=== PATIENT | female | born 1935 | race Caucasian/White ===

== ENCOUNTER 2019-08-24 06:46 | Inpatient (IN) ==
[2019-08-24] MEDS ORDERED: IOPAMIDOL 100 ML BOTTLE IV ONE (06:47)
--- NOTE | 2019-08-24 07:10 | Emergency Department Note ---
Weakness HPI - General Chief complaint: Stroke Symptoms Stated complaint: suspects cva 5 days Time Seen by Provider: 08/24/19 06:55 Source: patient, EMS Mode of arrival: EMS Limitations: no limitations - History of Present Illness HPI Narrative: 84-year-old female with a 5-day history of generalized weakness. She was initially seen on day 1 in our ER-I reviewed that note-but at that time the doctor did not see any focal deficit-she was diagnosed with dehydration and hyponatremia. Today however she comes in with slurred speech and right-sided weakness worse than left. The right hand weakness has been going on for 2 days now -yesterday she had some trouble eating with. This morning she had some trouble getting out of bed and putting weight on that arm. she is concerned she has had a stroke. Her daughter noted a facial droop as well. Her daughter also notes the slurred speech. Yesterday she was able to get out of bed on her own go to the bathroom but this morning she was not even able to get out of bed secondary to her right arm and leg weakness - Related Data Home Medications Medication Instructions Recorded Confirmed Aspirin [Lee Chewable Aspirin] 81 mg PO DAILY 08/21/16 08/24/19 Ascorbic Acid [Vitamin C] 500 mg PO DAILY 08/20/19 08/24/19 Benzonatate [Tessalon] 100 mg PO DAILY PRN 08/20/19 08/24/19 Canagliflozin [Invokana] 100 mg PO DAILY 08/20/19 08/24/19 Cholecalciferol (Vitamin D3) 25 gm MC DAILY 08/20/19 08/24/19 [Vitamin D3] Cyanocobalamin/Folic Acid [Vitamin 1,000 tab PO DAILY 08/20/19 08/24/19 R44-Aetvr Acid Tablet] Garlic [Garlic Oil] 2,000 tab PO DAILY 08/20/19 08/24/19 Vidhi Root 550 mg PO BID 08/20/19 08/24/19 Gluc Pierre/Chondro Pierre A/Vit C/Mn 1 tab PO DAILY 08/20/19 08/24/19 [Glucosamine 1,500 Complex Cp] L.acidoph,Paracasei, B.lactis 1 tab PO DAILY 08/20/19 08/24/19 [Probiotic] Linagliptin [Tradjenta] 1 tab PO DAILY 08/20/19 08/24/19 Multivit-Minerals/Folic Acid [One 1 tab PO DAILY 08/20/19 08/24/19 Daily Womens 50 Plus Tab] [place]-3S/Dha/Epa/Fish Oil [Fish 1 tab PO DAILY 08/20/19 08/24/19 Oil 1,200 mg Softgel] Pioglitazone HCl 30 mg PO DAILY 08/20/19 08/24/19 Psyllium Husk [Daily Fiber] 2 tab PO DAILY 08/20/19 08/24/19 Ubidecarenone [Co Q-10] 200 mg PO DAILY 08/20/19 08/24/19 rOPINIRole HCL [Ropinirole HCl] 2 mg PO DAILY 08/20/19 08/24/19 Hydrochlorothiazide [Oretic] 25 mg PO DAILY 08/24/19 08/24/19 Losartan Potassium 100 mg PO DAILY 08/24/19 08/24/19 Allergies Allergy/AdvReac Type Severity Reaction Status Date / Time No Known Drug Allergies Allergy Verified 08/20/19 15:57 Review of Systems All systems ED: reviewed and negative except as stated. Past Medical History - Past Medical History Attestation: Yes: The following information was validated with the patient. [facility] Narrative: Medical History (Last Updated 08/20/19 @ 22:57 by Alon Shah DO) Restless leg syndrome (Chronic) Diabetic peripheral neuropathy (Chronic) Hypertension, essential (Chronic) Hyperlipidemia (Chronic) Diabetes mellitus, type 2 (Chronic) Past Surgical History (Last Updated 08/20/19 @ 22:58 by Alon Shah DO) History of back surgery (Acute) History of bilateral cataract extraction (Acute) History of carpal tunnel release of both wrists (Acute) History of total bilateral knee replacement (TKR) (Acute) Medical history: Reports: DM, hyperlipidemia, hypertension, other (B12 deficient) - Social History smoking status: Former smoker Alcohol use: Reports: Unknown Drug use: Reports: none Physical Exam No acute distress. Normocephalic atraumatic. Conjunctive are clear sclera white nonicteric. No nasal discharge or congestion. Oropharynx is pink and moist. Posterior pharynx is clear. Neck is supple without lymphadenopathy thyromegaly or carotid bruit. Heart is regular rate and rhythm no murmur appreciated. Lungs are clear to auscultation bilaterally without wheezes rales rhonchi or respiratory distress. Abdomen soft nontender nondistended. No peritoneal signs or guarding. No pedal edema. Alert oriented. No dysarthria a taxia or tremor. 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 Right hip is also weaker than the left she can hold both legs up against gravity. She does have some ataxia on the right side with [id number] being off and significantly different than the left. There is perhaps a slight right facial droop but this is equivocal. Cranial nerve testing was essentially normal but she did have some difficulty following directions on the extraocular movements. I do not see any aphasia Limitations: no limitations Course Vital Signs Temperature 97.8 F 08/24/19 06:48 Pulse Rate 68 08/24/19 06:48 Respiratory Rate 18 08/24/19 06:48 Pulse Oximetry (%) 97 08/24/19 06:48 Temperature 97.8 F 08/24/19 06:48 Pulse Rate 67 08/24/19 08:16 Respiratory Rate 18 08/24/19 08:32 Blood Pressure 125/96 08/24/19 08:32 Pulse Oximetry (%) 98 08/24/19 08:16 Weakness - Lab Data Result diagrams: 08/24/19 07:06 08/24/19 07:06 Lab Results 08/24/19 08/24/19 08/24/19 Range/Units 07:06 07:06 07:06 WBC 9.1 (4.5-11.0) K/mcL RBC 4.75 (4.00-5.20) M/mcL Hgb 12.8 (12.0-15.0) g/dL Hct 39.8 (36.0-48.0) % POC Hct 39.0 (36.0-48.0) % MCV 83.8 (80.0-100.0) fL MCH 27.0 (26.0-34.0) pg MCHC 32.3 (31.0-36.0) g/dL RDW 15.3 H (11.5-14.5) % Plt Count 235 (140-440) K/mcL MPV 8.7 (7.4-10.4) fL Gran % 63.7 (38.0-78.0) % Lymph % (Auto) 21.6 (15.5-49.0) % [place] % (Auto) 8.7 (1.0-12.0) % Eos % (Auto) 5.5 (0.0-7.0) % Baso % (Auto) 0.5 (0.0-2.0) % Gran # 5.8 (1.8-8.0) K/mcL Lymph # (Auto) 2.0 (1.5-4.8) K/mcL [place] # (Auto) 0.8 (0.1-0.9) K/mcL Eos # (Auto) 0.5 (0.0-0.7) K/mcL Baso # (Auto) 0 (0.0-0.3) K/mcL POC PT 11.9 (11.9-14.5) sec POC INR 1.0 (0.9-1.2) APTT 30 (20-37) sec POC Sodium 137 (133-145) mmol/L Sodium 137 (133-145) mmol/L POC Potassium 3.8 (3.3-5.1) mmol/L Potassium 4.0 (3.3-5.1) mmol/L POC Chloride 106 (96-108) mmol/L Chloride 102 (96-108) mmol/L Carbon Dioxide 21 L (22-30) mmol/L POC Total CO2 22 (22-30) mmol/L Anion Gap 14.0 (8-16) POC BUN 27 H (8-23) mg/dl BUN 26 H (8-23) mg/dl Creatinine 0.9 (0.6-1.1) mg/dl POC Creatinine 0.9 (0.6-1.1) mg/dl GFR Calculation 58 Glucose 132 H (70-105) mg/dL POC Glucose 131 H (70-105) mg/dL Calcium 9.8 (8.6-10.4) mg/dl POC WB Ioniz Calcium 1.18 (1.16-1.32) mmol/L Total Bilirubin 0.2 (0.0-1.0) mg/dL AST 13 (0-37) U/l ALT 12 (0-40) U/l Alkaline Phosphatase 59 (39-117) U/L Troponin T (0-0.03) ng/ml Total Protein 6.7 (5.9-8.4) gm/dL Albumin 3.6 (3.2-5.2) gm/dL Globulin 3.1 (2.2-3.7) gm/dL Albumin/Globulin Ratio 1.2 (1.0-2.3) Urine Color Urine Appearance Urine pH (5.0-9.0) Ur Specific [place] (1.000-1.035) Urine Protein (NEG) mg/dL Urine Glucose (UA) (NEG) mg/dL Urine Ketones (NEG) mg/dL Urine Occult Blood (<0.03) mg/dL Urine Nitrate (NEG) Urine Bilirubin (NEG) mg/dL Urine Urobilinogen (NEG) mg/dL Ur Leukocyte Esterase (NEG) /uL Urine RBC (0-1) /hpf Urine WBC (0-4) /hpf Ur Squamous Epith Cells (0-4) /hpf Ur Transition Epith Cell (0-2) /hpf Urine Bacteria (0) /hpf Ur Culture Indicated? 08/24/19 08/24/19 Range/Units 07:06 07:30 WBC (4.5-11.0) K/mcL RBC (4.00-5.20) M/mcL Hgb (12.0-15.0) g/dL Hct (36.0-48.0) % POC Hct (36.0-48.0) % MCV (80.0-100.0) fL MCH (26.0-34.0) pg MCHC (31.0-36.0) g/dL RDW (11.5-14.5) % Plt Count (140-440) K/mcL MPV (7.4-10.4) fL Gran % (38.0-78.0) % Lymph % (Auto) (15.5-49.0) % [place] % (Auto) (1.0-12.0) % Eos % (Auto) (0.0-7.0) % Baso % (Auto) (0.0-2.0) % Gran # (1.8-8.0) K/mcL Lymph # (Auto) (1.5-4.8) K/mcL [place] # (Auto) (0.1-0.9) K/mcL Eos # (Auto) (0.0-0.7) K/mcL Baso # (Auto) (0.0-0.3) K/mcL POC PT (11.9-14.5) sec POC INR (0.9-1.2) APTT (20-37) sec POC Sodium (133-145) mmol/L Sodium (133-145) mmol/L POC Potassium (3.3-5.1) mmol/L Potassium (3.3-5.1) mmol/L POC Chloride (96-108) mmol/L Chloride (96-108) mmol/L Carbon Dioxide (22-30) mmol/L POC Total CO2 (22-30) mmol/L Anion Gap (8-16) POC BUN (8-23) mg/dl BUN (8-23) mg/dl Creatinine (0.6-1.1) mg/dl POC Creatinine (0.6-1.1) mg/dl GFR Calculation Glucose (70-105) mg/dL POC Glucose (70-105) mg/dL Calcium (8.6-10.4) mg/dl POC WB Ioniz Calcium (1.16-1.32) mmol/L Total Bilirubin (0.0-1.0) mg/dL AST (0-37) U/l ALT (0-40) U/l Alkaline Phosphatase (39-117) U/L Troponin T < 0.01 (0-0.03) ng/ml Total Protein (5.9-8.4) gm/dL Albumin (3.2-5.2) gm/dL Globulin (2.2-3.7) gm/dL Albumin/Globulin Ratio (1.0-2.3) Urine Color Straw Urine Appearance Clear Urine pH 6.0 (5.0-9.0) Ur Specific [place] 1.007 (1.000-1.035) Urine Protein Neg (NEG) mg/dL Urine Glucose (UA) >=500 A (NEG) mg/dL Urine Ketones Neg (NEG) mg/dL Urine Occult Blood Neg (<0.03) mg/dL Urine Nitrate Neg (NEG) Urine Bilirubin Neg (NEG) mg/dL Urine Urobilinogen Neg (NEG) mg/dL Ur Leukocyte Esterase 25 A (NEG) /uL Urine RBC < 1 (0-1) /hpf Urine WBC 2 (0-4) /hpf Ur Squamous Epith Cells 2 (0-4) /hpf Ur Transition Epith Cell < 1 (0-2) /hpf Urine Bacteria 0 (0) /hpf Ur Culture Indicated? No - Radiology Data Radiology results reviewed: Yes I reviewed the patient's radiology results. CT scan of the brain shows no acute stroke Disposition Pt seen by PRESS OPERATOR MEAT/PA only: No Clinical Impression: CVA (cerebral vascular accident) Qualifiers: CVA mechanism: unspecified Qualified Code(s): I63.9 - Cerebral infarction, unspecified Summary: Concern for acute neural deficit with an NIH of 3. CT scan was negative. Laboratory is pending. EKG did not show any concerning features nor was she in A. fib Tele-stroke was contacted. CTA was ordered of the head and neck. While was waiting for the CTA, I discussed the case with tele-stroke Dr. Webb. He agreed the patient was not a candidate for TPA because symptom onset was unknown and could be as great as 48 hours ago. He recommended continuing the aspirin and evaluating the CTA for large vessel occlusion. If the CTA shows large vessel occlusion she would be eligible for an intervention but otherwise recommended admission with MRI and further work-up here Shift change came and patient is handed off to Dr. Shah for further evaluation management and disposition Disposition: Still a Patient Condition: Serious Referrals: Chelsea Wagner, MIRZA [Primary Care Provider] -
[2019-08-24 07:18] LABS: POC Pro Time 11.9 sec (11.9-14.5)
[2019-08-24 07:21] LABS: POC Blood Urea Nitrogen 27 mg/dl (8-23); POC CO2 22 mmol/L (22-30); POC Calcium, Ionized 1.18 mmol/L (1.16-1.32); POC Chloride 106 mmol/L (96-108); POC Creatinine 0.9 mg/dl (0.6-1.1); POC Glucose, Random 131 mg/dL (70-105); POC Potassium 3.8 mmol/L (3.3-5.1); POC Sodium 137 mmol/L (133-145)
--- NOTE | 2019-08-24 07:30 | Cat Scan Report ---
CLINICAL INFORMATION: Dysarthria and weakness. Acute stroke COMPARISON: None. TECHNIQUE: 2.5 mm helical slices were obtained in the skull base to vertex. Following reconstruction, axial reformatted images were reviewed at bone and parenchymal windows. The exam was performed using radiation dose optimization techniques including, but not limited to, automated exposure control, adjustment of the mA and/or kV according to patient size and use of iterative reconstruction technique. FINDINGS: The ventricles, sulci, fissures, and cisterns are symmetrically enlarged compatible with mild age-related atrophy. No extra-axial fluid collections are identified. Mild patchy chronic ischemic changes in the deep cerebral white matter are expected for age. The cerebrum, brainstem and cerebellum are, otherwise, unremarkable. There is no evidence of hemorrhage, mass effect, or edema. Bone windows show no osseous abnormality. IMPRESSION: Mild atrophy and patchy chronic ischemic changes in the deep cerebral white matter expected for age. No acute findings Interpreted and Authenticated by: Eladio Arredondo 08/24/19
[2019-08-24 08:03] LABS: Basophils # (Auto) 0 K/mcL (0.0-0.3); Basophils % (Auto) 0.5 % (0.0-2.0); Eosinophils # (Auto) 0.5 K/mcL (0.0-0.7); Eosinophils % (Auto) 5.5 % (0.0-7.0); Granulocytes % (Auto) 63.7 % (38.0-78.0); Hematocrit 39.8 % (36.0-48.0); Hemoglobin 12.8 g/dL (12.0-15.0); Lymphocytes % (Auto) 21.6 % (15.5-49.0); Mean Cell Volume 83.8 fL (80.0-100.0); Mean Corpuscular HGB Conc 32.3 g/dL (31.0-36.0); Mean Platelet Volume 8.7 fL (7.4-10.4); Monocytes # (Auto) 0.8 K/mcL (0.1-0.9); Monocytes % (Auto) 8.7 % (1.0-12.0); Platelet Count 235 K/mcL (140-440); RBC 4.75 M/mcL (4.00-5.20); Red Cell Distribution Width 15.3 % (11.5-14.5); WBC 9.1 K/mcL (4.5-11.0)
[2019-08-24 08:22] LABS: ALT/SGPT 12 U/l (0-40); AST/SGOT 13 U/l (0-37); Albumin 3.6 gm/dL (3.2-5.2); Albumin/Globulin Ratio 1.2 (1.0-2.3); Alkaline Phosphatase 59 U/L (39-117); Bilirubin,Total 0.2 mg/dL (0.0-1.0); Blood Urea Nitrogen 26 mg/dl (8-23); Calcium 9.8 mg/dl (8.6-10.4); Carbon Dioxide 21 mmol/L (22-30); Chloride 102 mmol/L (96-108); Globulin 3.1 gm/dL (2.2-3.7); Glomerular Filtration Rate 58; Glucose 132 mg/dL (70-105)
[2019-08-24 08:32] LABS: Appearance,Urine CLEAR; Bacteria,Urine 0 /hpf (0); Bilirubin,Urine NEG (NEG); Color,Urine STRAW; Culture Indicated,Urine NO; Glucose,Urine (UA) >=500 mg/dL (NEG); Ketones,Urine NEG (NEG); Leukocyte Esterase,Urine 25 /uL (NEG); Nitrate,Urine NEG (NEG); Protein,Urine NEG (NEG); Specific Gravity,Urine 1.007 (1.000-1.035); Urine Blood NEG mg/dL (<0.03); Urine RBC < 1 /hpf (0-1); Urine Squamous Epithelial Cell 2 /hpf (0-4); Urine Transitional Epi Cells < 1 /hpf (0-2); Urine WBC 2 /hpf (0-4); Urobilinogen,Urine NEG (NEG)
--- NOTE | 2019-08-24 09:22 | Cat Scan Report ---
CLINICAL INFORMATION: CVA COMPARISON: None. TECHNIQUE: 80 cc of Isovue-370 were injected intravenously , and using SmartPrep to maximize cerebral arterial opacification, 0.625 mm helical slices were obtained from the skull base through the cerebral vertex. Following reconstruction , sagittal, coronal and axial reformatted images were processed and reviewed at multiple windows and levels. 3D volume rendered and MIP images were acquired at a independent workstation. The exam was performed using radiation dose optimization techniques including, but not limited to, automated exposure control, adjustment of the mA and/or kV according to patient size and use of iterative reconstruction technique. FINDINGS: Both intracranial internal carotid, both anterior cerebral and left middle cerebral arteries are well opacified and normal in contour and caliber. In the right middle cerebral artery, the M2 insular segment branch is absent which is suspect is due to occlusion from thrombus or embolus. The remaining right middle cerebral artery and branches are normal. The intracranial vertebral and basilar arteries are normal. There there are 4-5 stenoses ranging up to 80% within the P1 and P2 branches of the right posterior cerebral artery. 80% stenosis within the left P2 segment posterior cerebral artery initiated. The superficial /deep cerebral veins and the venous sinuses are widely patent. IMPRESSION: 1. 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 Suggest MRI 2. 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 There is also a 80% stenosis in the P2 segment of left posterior cerebral artery. Interpreted and Authenticated by: Eladio Arredondo 08/24/19
--- NOTE | 2019-08-24 09:34 | Cat Scan Report ---
CLINICAL INFORMATION: Stroke symptoms COMPARISON: None. TECHNIQUE: 80 cc of Isovue-370 were injected intravenously, and using SmartPrep to maximize arterial opacification, 0.625 mm helical slices were obtained from the thoracic aortic arch through the [place] of [place]. Following reconstruction, 2.5mm sagittal, coronal and axial reformatted images were processed and reviewed at standard and bone algorithm/window. 3-D volume rendered, CPR and MIP images were processed using a Q.ME work station.The exam was performed using radiation dose optimization techniques including, but not limited to, automated exposure control, adjustment of the mA and/or kV according to patient size and use of iterative reconstruction technique. FINDINGS: The thoracic aortic arch is normal in diameter with diffuse intimal thickening. Aortic branching is conventional. The brachiocephalic, both common, internal and external carotid, both vertebral and subclavian arteries are widely patent. There is mild calcific plaque in both proximal internal carotid arteries. At C4-5, there is 3 mm of C4 anterior subluxation and degenerative facet disease which results in severe left lateral recess/ IV foraminal narrowing with impingement of the exiting left C5 nerve root. At C5-6, moderate broad disc spur complex and facet arthropathy results in mild central canal, moderate left and mild right lateral recess/ IV foraminal narrowing with impingement of the exiting left C6 nerve root. At C6-7, large broad disc spur complex results in moderate central canal, severe right and moderate severe left lateral recess/ IV foraminal narrowing impinging the exiting C7 nerve roots. Large effusion is noted in the right glenohumeral joint with 3-4 loose bodies ranging up to 12 mm the subscapularis bursa. There is also fluid in both sternoclavicular and left glenohumeral joints. IMPRESSION: 1. Thoracic aortic arch, brachiocephalic, both subclavian, vertebral and carotid arteries are widely patent. There is, however, mild calcific plaque in the proximal internal carotid arteries. 2. Large effusion in the right glenohumeral joint distending the subscapularis bursa which contains 2-3 loose bodies ranging up to 12 mm. Findings suggestive of synovial osteochondromatosis - please correlate with chronic shoulder pain. Small effusion left glenohumeral joint is also appreciated. 3. Moderate effusion of both sternoclavicular joints - please correlate with pain. Consider correlation with arthritic serologies 4. Degenerative changes in the mid cervical spine resulting in central canal, lateral recess and IV foraminal narrowing most severe at C6-7. Please correlate with chronic radiculopathy in the left C5 and C6 and bilateral C7 nerve root distributions., Interpreted and Authenticated by: Eladio Arredondo 08/24/19
--- NOTE | 2019-08-24 10:21 | Emergency Department Note ---
Neuro HPI - General Chief Complaint: Stroke Symptoms Stated Complaint: suspects cva 5 days Time Seen by Provider: 08/24/19 06:55 Source: patient, EMS Mode of arrival: EMS Limitations: no limitations - History of Present Illness HPI Narrative: See dictated history and physical by Dr. Jackson. I am following patient up after change in shift. CTA demonstrated a question of absent him to segments of the right MCA suggesting occlusion with chronicity unknown and suggestion for MRI. 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 I spoke with Dr. Maya, stroke neurologist, who confirms that because this is more than 24 hours since presentation and does not correlate to her symptoms/findings there is no aggressive or acute intervention needed. MRI is not indicated on an urgent/emergent basis. I discussed this with family who is willing to have patient stay for further evaluation/monitoring. Willing if necessary for transfer to [facility]. 10:01 AM - call out to hospitalist here. 10:30 AM - spoke with Dr. Dugan. With patient having these interesting stenoses he is requesting that I review/consult with interventional radiologist Dr. Johnson. 10:46 AM - spoke with Dr. Johnson who points out that with intracranial stenoses they are treated initially quite conservatively as the risks of intracranial stenting is problematic. He recommends dual antiplatelet therapy with full dose aspirin at 325 and Plavix 75 daily (could be loaded with 300). If she has repeat stroke problems then stenting would be consideration. 11:05 AM - spoke with Dr. Dugan who will see patient for admission. MRI and echocardiogram to be considered for further work-up. On Anticoagulants: No - Related Data Home Medications: Home Medications Medication Instructions Recorded Confirmed Aspirin [Lee Chewable Aspirin] 81 mg PO DAILY 08/21/16 08/24/19 Ascorbic Acid [Vitamin C] 500 mg PO DAILY 08/20/19 08/24/19 Benzonatate [Tessalon] 100 mg PO DAILY PRN 08/20/19 08/24/19 Canagliflozin [Invokana] 100 mg PO DAILY 08/20/19 08/24/19 Cholecalciferol (Vitamin D3) 25 gm MC DAILY 08/20/19 08/24/19 [Vitamin D3] Cyanocobalamin/Folic Acid [Vitamin 1,000 tab PO DAILY 08/20/19 08/24/19 [id number] Acid Tablet] Garlic [Garlic Oil] 2,000 tab PO DAILY 08/20/19 08/24/19 Vidhi Root 550 mg PO BID 08/20/19 08/24/19 Gluc Pierre/Chondro Pierre A/Vit C/Mn 1 tab PO DAILY 08/20/19 08/24/19 [Glucosamine 1,500 Complex Cp] L.acidoph,Paracasei, B.lactis 1 tab PO DAILY 08/20/19 08/24/19 [Probiotic] Linagliptin [Tradjenta] 1 tab PO DAILY 08/20/19 08/24/19 Multivit-Minerals/Folic Acid [One 1 tab PO DAILY 08/20/19 08/24/19 Daily Womens 50 Plus Tab] [place]-3S/Dha/Epa/Fish Oil [Fish 1 tab PO DAILY 08/20/19 08/24/19 Oil 1,200 mg Softgel] Pioglitazone HCl 30 mg PO DAILY 08/20/19 08/24/19 Psyllium Husk [Daily Fiber] 2 tab PO DAILY 08/20/19 08/24/19 Ubidecarenone [Co Q-10] 200 mg PO DAILY 08/20/19 08/24/19 rOPINIRole HCL [Ropinirole HCl] 2 mg PO DAILY 08/20/19 08/24/19 Hydrochlorothiazide [Oretic] 25 mg PO DAILY 08/24/19 08/24/19 Losartan Potassium 100 mg PO DAILY 08/24/19 08/24/19 Allergies/Adverse Reactions: Allergies Allergy/AdvReac Type Severity Reaction Status Date / Time No Known Drug Allergies Allergy Verified 08/20/19 15:57 Past Medical History - Past Medical History Medical history: Reports: DM, hyperlipidemia, hypertension, other (B12 deficient) Surgical history ED: Reports: non-contributory - Social History smoking status: Former smoker Alcohol use: Reports: Unknown Drug use: Reports: none Physical Exam Is pleasant and interactive. Her speech is slightly slurred/slowed. A decrease in movement on the right side of her mouth is equivocal. She continues to report the right upper extremity and right lower extremity weakness. Family volunteers that there is some weakness on both sides but patient clarifies that there is greater on the right compared to the left. Extraocular muscles intact. She moves all extremities. She is interactive and appropriate. Limitations: no limitations Course Vital Signs Temperature 97.8 F 08/24/19 06:48 Pulse Rate 68 08/24/19 06:48 Respiratory Rate 18 08/24/19 06:48 Pulse Oximetry (%) 97 08/24/19 06:48 Temperature 97.8 F 08/24/19 06:48 Pulse Rate 78 08/24/19 10:46 Respiratory Rate 22 08/24/19 10:46 Blood Pressure 122/58 08/24/19 10:46 Pulse Oximetry (%) 100 08/24/19 10:46 Neuro Symptoms/Deficit - Lab Data Result diagrams: 08/24/19 07:06 08/24/19 07:06 Lab Results 08/24/19 08/24/19 08/24/19 Range/Units 07:06 07:06 07:06 WBC 9.1 (4.5-11.0) K/mcL RBC 4.75 (4.00-5.20) M/mcL Hgb 12.8 (12.0-15.0) g/dL Hct 39.8 (36.0-48.0) % POC Hct 39.0 (36.0-48.0) % MCV 83.8 (80.0-100.0) fL MCH 27.0 (26.0-34.0) pg MCHC 32.3 (31.0-36.0) g/dL RDW 15.3 H (11.5-14.5) % Plt Count 235 (140-440) K/mcL MPV 8.7 (7.4-10.4) fL Gran % 63.7 (38.0-78.0) % Lymph % (Auto) 21.6 (15.5-49.0) % Pepin % (Auto) 8.7 (1.0-12.0) % Eos % (Auto) 5.5 (0.0-7.0) % Baso % (Auto) 0.5 (0.0-2.0) % Gran # 5.8 (1.8-8.0) K/mcL Lymph # (Auto) 2.0 (1.5-4.8) K/mcL Pepin # (Auto) 0.8 (0.1-0.9) K/mcL Eos # (Auto) 0.5 (0.0-0.7) K/mcL Baso # (Auto) 0 (0.0-0.3) K/mcL POC PT 11.9 (11.9-14.5) sec POC INR 1.0 (0.9-1.2) APTT 30 (20-37) sec POC Sodium 137 (133-145) mmol/L Sodium 137 (133-145) mmol/L POC Potassium 3.8 (3.3-5.1) mmol/L Potassium 4.0 (3.3-5.1) mmol/L POC Chloride 106 (96-108) mmol/L Chloride 102 (96-108) mmol/L Carbon Dioxide 21 L (22-30) mmol/L POC Total CO2 22 (22-30) mmol/L Anion Gap 14.0 (8-16) POC BUN 27 H (8-23) mg/dl BUN 26 H (8-23) mg/dl Creatinine 0.9 (0.6-1.1) mg/dl POC Creatinine 0.9 (0.6-1.1) mg/dl GFR Calculation 58 Glucose 132 H (70-105) mg/dL POC Glucose 131 H (70-105) mg/dL Calcium 9.8 (8.6-10.4) mg/dl POC WB Ioniz Calcium 1.18 (1.16-1.32) mmol/L Total Bilirubin 0.2 (0.0-1.0) mg/dL AST 13 (0-37) U/l ALT 12 (0-40) U/l Alkaline Phosphatase 59 (39-117) U/L Troponin T (0-0.03) ng/ml Total Protein 6.7 (5.9-8.4) gm/dL Albumin 3.6 (3.2-5.2) gm/dL Globulin 3.1 (2.2-3.7) gm/dL Albumin/Globulin Ratio 1.2 (1.0-2.3) Urine Color Urine Appearance Urine pH (5.0-9.0) Ur Specific [place] (1.000-1.035) Urine Protein (NEG) mg/dL Urine Glucose (UA) (NEG) mg/dL Urine Ketones (NEG) mg/dL Urine Occult Blood (<0.03) mg/dL Urine Nitrate (NEG) Urine Bilirubin (NEG) mg/dL Urine Urobilinogen (NEG) mg/dL Ur Leukocyte Esterase (NEG) /uL Urine RBC (0-1) /hpf Urine WBC (0-4) /hpf Ur Squamous Epith Cells (0-4) /hpf Ur Transition Epith Cell (0-2) /hpf Urine Bacteria (0) /hpf Ur Culture Indicated? 08/24/19 08/24/19 Range/Units 07:06 07:30 WBC (4.5-11.0) K/mcL RBC (4.00-5.20) M/mcL Hgb (12.0-15.0) g/dL Hct (36.0-48.0) % POC Hct (36.0-48.0) % MCV (80.0-100.0) fL MCH (26.0-34.0) pg MCHC (31.0-36.0) g/dL RDW (11.5-14.5) % Plt Count (140-440) K/mcL MPV (7.4-10.4) fL Gran % (38.0-78.0) % Lymph % (Auto) (15.5-49.0) % Pepin % (Auto) (1.0-12.0) % Eos % (Auto) (0.0-7.0) % Baso % (Auto) (0.0-2.0) % Gran # (1.8-8.0) K/mcL Lymph # (Auto) (1.5-4.8) K/mcL Pepin # (Auto) (0.1-0.9) K/mcL Eos # (Auto) (0.0-0.7) K/mcL Baso # (Auto) (0.0-0.3) K/mcL POC PT (11.9-14.5) sec POC INR (0.9-1.2) APTT (20-37) sec POC Sodium (133-145) mmol/L Sodium (133-145) mmol/L POC Potassium (3.3-5.1) mmol/L Potassium (3.3-5.1) mmol/L POC Chloride (96-108) mmol/L Chloride (96-108) mmol/L Carbon Dioxide (22-30) mmol/L POC Total CO2 (22-30) mmol/L Anion Gap (8-16) POC BUN (8-23) mg/dl BUN (8-23) mg/dl Creatinine (0.6-1.1) mg/dl POC Creatinine (0.6-1.1) mg/dl GFR Calculation Glucose (70-105) mg/dL POC Glucose (70-105) mg/dL Calcium (8.6-10.4) mg/dl POC WB Ioniz Calcium (1.16-1.32) mmol/L Total Bilirubin (0.0-1.0) mg/dL AST (0-37) U/l ALT (0-40) U/l Alkaline Phosphatase (39-117) U/L Troponin T < 0.01 (0-0.03) ng/ml Total Protein (5.9-8.4) gm/dL Albumin (3.2-5.2) gm/dL Globulin (2.2-3.7) gm/dL Albumin/Globulin Ratio (1.0-2.3) Urine Color Straw Urine Appearance Clear Urine pH 6.0 (5.0-9.0) Ur Specific [place] 1.007 (1.000-1.035) Urine Protein Neg (NEG) mg/dL Urine Glucose (UA) >=500 A (NEG) mg/dL Urine Ketones Neg (NEG) mg/dL Urine Occult Blood Neg (<0.03) mg/dL Urine Nitrate Neg (NEG) Urine Bilirubin Neg (NEG) mg/dL Urine Urobilinogen Neg (NEG) mg/dL Ur Leukocyte Esterase 25 A (NEG) /uL Urine RBC < 1 (0-1) /hpf Urine WBC 2 (0-4) /hpf Ur Squamous Epith Cells 2 (0-4) /hpf Ur Transition Epith Cell < 1 (0-2) /hpf Urine Bacteria 0 (0) /hpf Ur Culture Indicated? No Disposition Pt seen by EXPERIMENTAL WELDER/PA only: No Clinical Impression: CVA (cerebral vascular accident) Qualifiers: CVA mechanism: unspecified Qualified Code(s): I63.9 - Cerebral infarction, unspecified Disposition: Xfer As Inpt ([facility]) Condition: Serious Referrals: Chelsea Wagner ARNP [Primary Care Provider] -
--- NOTE | 2019-08-24 11:50 | Internal Med History&Physical ---
Medical - H&P: [facility] Patient information: Note initiated : 08/24/19 at 11:47 am Service Date, if different from initiated Date: [] Patient: Mahogany Quintero a 84 y/o F admitted on for suspects cva 5 days. Chief Complaint: [] History of present illness: Ms. Quintero is a 84 year old F Since the ED with severe right arm weakness and slurring speech. She is accompanied by her daughters. They reported. She had some right facial drooping as well initially. Has generalized weakness admits to feeling her right leg to be a little bit weaker than left but much better than her right arm. She was seen a few days ago for generalized weakness was found to be dehydrated and hyponatremic. At that time she did not have any focal deficits is more generalized weakness. Over the last couple days she developed right arm weak ness and some slurring in the mornings. This morning her right arm weakness so severe she was unable to get herself up off the bed. She does take a baby aspirin every day. Case is discussed with stroke neurologist at [facility] to see patients on a candidate for TPA given the unknown timeframe and sounds to be at least couple days. CT of the head and neck showed no carotid artery stenosis but showed intracranial genetic lesions. Case was discussed with Dr. Johnson who recommended dual antiplatelet therapy and patient not candidate for any intervention at this time. She denies any acute vision change changes. Has numbness tingling. Review of Systems: Pertinent positives as above. Denies headache/fever/chills/nausea/vomiting/chest or abdominal pain/cough/dyspnea/diarrhea. Many 10 point review of system reviewed negative Medical - H&P: [facility] Medical history: Medical History (Last Updated 08/20/19 @ 22:57 by Alon Shah DO) Restless leg syndrome (Chronic) Diabetic peripheral neuropathy (Chronic) Hypertension, essential (Chronic) Hyperlipidemia (Chronic) Diabetes mellitus, type 2 (Chronic) Past Surgical History (Last Updated 08/20/19 @ 22:58 by Alon Shah DO) History of back surgery (Acute) History of bilateral cataract extraction (Acute) History of carpal tunnel release of both wrists (Acute) History of total bilateral knee replacement (TKR) (Acute) Family history: Mother had CAD and father had a stroke Social history: Patient quit smoking 50 years ago Drinks alcohol rarely Typically does not use a cane or walker but is using both those in the past couple days Lives at [facility] Medical - H&P: Meds Home Medications Medication Instructions Recorded Confirmed Type Aspirin [Lee Chewable Aspirin] 81 mg PO DAILY 08/21/16 08/24/19 History Ascorbic Acid [Vitamin C] 500 mg PO DAILY 08/20/19 08/24/19 History Benzonatate [Tessalon] 100 mg PO DAILY PRN 08/20/19 08/24/19 History Canagliflozin [Invokana] 100 mg PO DAILY 08/20/19 08/24/19 History Cholecalciferol (Vitamin D3) 25 gm MC DAILY 08/20/19 08/24/19 History [Vitamin D3] Cyanocobalamin/Folic Acid [Vitamin 1,000 tab PO DAILY 08/20/19 08/24/19 History [id number] Acid Tablet] Garlic [Garlic Oil] 2,000 tab PO DAILY 08/20/19 08/24/19 History Vidhi Root 550 mg PO BID 08/20/19 08/24/19 History Gluc Pierre/Chondro Pierre A/Vit C/Mn 1 tab PO DAILY 08/20/19 08/24/19 History [Glucosamine 1,500 Complex Cp] L.acidoph,Paracasei, B.lactis 1 tab PO DAILY 08/20/19 08/24/19 History [Probiotic] Linagliptin [Tradjenta] 1 tab PO DAILY 08/20/19 08/24/19 History Multivit-Minerals/Folic Acid [One 1 tab PO DAILY 08/20/19 08/24/19 History Daily Womens 50 Plus Tab] [place]-3S/Dha/Epa/Fish Oil [Fish 1 tab PO DAILY 08/20/19 08/24/19 History Oil 1,200 mg Softgel] Pioglitazone HCl 30 mg PO DAILY 08/20/19 08/24/19 History Psyllium Husk [Daily Fiber] 2 tab PO DAILY 08/20/19 08/24/19 History Ubidecarenone [Co Q-10] 200 mg PO DAILY 08/20/19 08/24/19 History rOPINIRole HCL [Ropinirole HCl] 2 mg PO DAILY 08/20/19 08/24/19 History Hydrochlorothiazide [Oretic] 25 mg PO DAILY 08/24/19 08/24/19 History Losartan Potassium 100 mg PO DAILY 08/24/19 08/24/19 History Allergies Allergy/AdvReac Type Severity Reaction Status Date / Time No Known Drug Allergies Allergy Verified 08/20/19 15:57 Medical - H&P: Exam - Constitutional Vitals: Temp Pulse Resp BP Pulse Ox 97.8 F 79 22 105/94 98 08/24/19 06:48 08/24/19 11:30 08/24/19 10:46 08/24/19 11:30 08/24/19 11:30 Exam: General: Alert, Awake, No acute Distress Eyes/N/T: EOMI, PEERL, DMM Head/Neck: neck supple, normocephalic atraumatic CV: RRR, No murmurs, normal s1/s2 Pulm: Clear b/l, no wheezing/rhonchi/rales Abd: soft, nontender, +BS x4 Ext: no clubbing/cyanosis/edema Neuro: Alert, RUE weakness, Lower strength appears to be symmetrical, sensations intact bilateral upper/lower , face appears symmetrical this time, slurred speech, pronator drift on the right skin: warm/dry Medical - H&P: [facility] - Labs CBC & Chem 7: 08/24/19 07:06 08/24/19 07:06 Labs: Short CBC 08/24/19 Range/Units 07:06 WBC 9.1 (4.5-11.0) K/mcL Hgb 12.8 (12.0-15.0) g/dL Hct 39.8 (36.0-48.0) % Plt Count 235 (140-440) K/mcL [facility] 08/24/19 07:06 Sodium 137 Potassium 4.0 Chloride 102 Carbon Dioxide 21 L BUN 26 H Creatinine 0.9 Glucose 132 H Calcium 9.8 Cardiac Enzymes 08/24/19 Range/Units 07:06 Troponin T < 0.01 (0-0.03) ng/ml Liver Function 08/24/19 Range/Units 07:06 Total Bilirubin 0.2 (0.0-1.0) mg/dL AST 13 (0-37) U/l ALT 12 (0-40) U/l Alkaline Phosphatase 59 (39-117) U/L Albumin 3.6 (3.2-5.2) gm/dL Urine 08/24/19 Range/Units 07:30 Urine Color Straw Urine Appearance Clear Urine pH 6.0 (5.0-9.0) Ur Specific [place] 1.007 (1.000-1.035) Urine Protein Neg (NEG) mg/dL Urine Glucose (UA) >=500 A (NEG) mg/dL - Impressions CT head showed mild atrophy and patchy chronic ischemic changes no acute findings. CTA head and neck showed patent carotid arteries and small vessel intracranial stenosis Medical - H&P: A/P - Narrative A/P Narrative: A: *Stroke-like symptoms with RUE weakness and slurred speech: -ABCD=7 -Case discussed with stroke neurologist @[facility] as well as Dr. Johnson. Recommendations for dual antiplatelet therapy *Volume depletion: *DM w/neuropathy: *HTN: *RLS: * P: -IVF's -DAPT/Statin -permissive hypertension for 24hrs - -restart ARB in AM likely, hold HCTZ and will not continue as she was recently here for hyponatremia and dehydration -cont DM meds and SSI -ST -pt/ot -CM for placement needs -ppx: lovenox DNR
[2019-08-24] MEDS ORDERED: ASPIRIN 81 MG TAB.CHEW CHEWED ONE (12:15)
[2019-08-24] MEDS ORDERED: SENNOSIDES 1 TABLET PO PRN (12:45)
[2019-08-24] MEDS ORDERED: POTASSIUM CHLORIDE 20 MEQ TABLET PO PRN ×2 (12:45)
[2019-08-24] MEDS ORDERED: POLYETHYLENE GLYCOL 3350 17 GM PACKET PO PRN (12:45)
[2019-08-24] MEDS ORDERED: ONDANSETRON 4 MG/2 ML VIAL IV PRN (12:45)
[2019-08-24] MEDS ORDERED: MAGNESIUM SULFATE 2 GM/50 ML BAG IV PRN (12:45)
[2019-08-24] MEDS ORDERED: POTASSIUM CHLORIDE 40 MEQ in DEXTROSE 5% IN WATER 500 ML IV PRN (12:45)
[2019-08-24] MEDS ORDERED: LACTULOSE 20 GM/30 ML ORAL.SOL PO PRN (12:45)
[2019-08-24] MEDS ORDERED: LABETALOL 5 MG/ML ML IV PRN (12:45)
[2019-08-24] MEDS ORDERED: IPRATROPIUM/ALBUTEROL 3 ML AMPUL.NEB NEB PRN (12:45)
[2019-08-24 13:17] LABS: HDL Cholesterol 62 mg/dl (>40); LDL Cholesterol,Calculated 119 mg/dl (SEE CHART); Non-HDL Cholesterol 151 (LDL TARGET+30); Triglycerides 164 mg/dl (<150)
[2019-08-24] MEDS ORDERED: DEXTROSE 50% 50 ML VIAL IV PRN (13:35)
[2019-08-24] MEDS ORDERED: DEXTROSE 31 GM ORAL.SUSP PO PRN (13:35)
[2019-08-24] MEDS: ENOXAPARIN 40 MG/0.4 ML SYRINGE SQ SCH (13:37)
[2019-08-24] MEDS: 0.9 % SODIUM CHLORIDE 1,000 ML IV SCH ×2 (13:38→23:58)
[2019-08-24] MEDS: CLOPIDOGREL 75 MG TABLET PO SCH (13:38)
[2019-08-24] MEDS: 0.9 % SODIUM CHLORIDE 10 ML SYRINGE IV SCH ×2 (13:43→20:51)
[2019-08-24] MEDS: INSULIN LISPRO 1 UNIT/0.01 ML UNIT SQ SCH ×2 (16:50→20:44)
[2019-08-24] MEDS: DOCUSATE SODIUM 100 MG CAPSULE PO SCH (20:48)
[2019-08-24] MEDS: ACETAMINOPHEN 325 MG TABLET PO PRN (20:49)
[2019-08-24] MEDS ORDERED: ATORVASTATIN 40 MG TABLET PO SCH ×2 (21:00)
[2019-08-25] MEDS: ACETAMINOPHEN 325 MG TABLET PO PRN ×3 (03:50→21:13)
[2019-08-25] MEDS: 0.9 % SODIUM CHLORIDE 10 ML SYRINGE IV SCH ×3 (05:14→21:18)
[2019-08-25 06:29] LABS: ALT/SGPT 9 U/l (0-40); AST/SGOT 13 U/l (0-37); Albumin 3.5 gm/dL (3.2-5.2); Albumin/Globulin Ratio 1.2 (1.0-2.3); Alkaline Phosphatase 56 U/L (39-117); Bilirubin,Direct < 0.2 mg/dL (0.0-0.3); Bilirubin,Total 0.2 mg/dL (0.0-1.0); Blood Urea Nitrogen 26 mg/dl (8-23); Calcium 9.1 mg/dl (8.6-10.4); Carbon Dioxide 22 mmol/L (22-30); Chloride 107 mmol/L (96-108); Globulin 2.9 gm/dL (2.2-3.7); Glomerular Filtration Rate 51; Glucose 140 mg/dL (70-105); Lactate Dehydrogenase 176 U/L (94-250); Phosphorous 3.4 mg/dL (2.7-4.5); Triglycerides 184 mg/dl (<150); Uric Acid 5.3 mg/dL (2.5-8.0)
--- NOTE | 2019-08-25 07:15 | Internal Med Progress Note ---
Medical - PN: Subj Patient information: Note initiated : 08/25/19 at 7:12 am Service Date, if different from initiated Date: [] Patient: Mahogany Quintero 84 y/o F admitted on 08/24/19 for suspects cva 5 days. Chief Complaint: [] Interval history: Ms. Quintero is a 84 year old F Since the ED with severe right arm weakness and slurring speech. She is accompanied by her daughters. They reported. She had some right facial drooping as well initially. Has generalized weakness admits to feeling her right leg to be a little bit weaker than left but much better than her right arm. She was seen a few days ago for generalized weakness was found to be dehydrated and hyponatremic. At that time she did not have any focal deficits is more generalized weakness. Over the last couple days she developed right arm weakne ss and some slurring in the mornings. This morning her right arm weakness so severe she was unable to get herself up off the bed. She does take a baby aspirin every day. Case is discussed with stroke neurologist at [place] to see patients on a candidate for TPA given the unknown timeframe and sounds to be at least couple days. CT of the head and neck showed no carotid artery stenosis but showed intracranial genetic lesions. Case was discussed with Dr. Johnson who recommended dual antiplatelet therapy and patient not candidate for any intervention at this time. Statin started. She denies any acute vision change changes. Has numbness tingling. 08/25 Poor sleep. it appears speech is better today. Family reports waxes and wanes, worse late in the night or early in the morning. No overnight events or new complaints. MRI showing lacunar infarct on left. Right arm still weak. 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 Occasional headache. Review of Systems: denies fever/chills/nausea/vomiting/chest or abdominal pain/cough/dyspnea/diarrhea. Otherwise see above. - Constitutional Vitals: Vital Signs Temp Pulse Resp BP Pulse Ox 98.3 F 68 16 130/61 100 08/25/19 03:52 08/25/19 06:56 08/24/19 18:08 08/25/19 06:56 08/25/19 06:56 Period Temp Pulse Resp BP Sys/Osman Pulse Ox Last 24 Hr 97.1 F-99.8 F 56-83 13-22 82-153/52-138 94-100 Intake and Output 08/24/19 08/25/19 08/25/19 21:59 05:59 13:59 Intake Total 720 1360 Output Total 450 700 Balance 270 660 Weight 63.049 kg Intake & Output: Intake & Output 08/24/19 08/25/19 08/25/19 21:59 05:59 13:59 Intake Total 720 1360 Output Total 450 700 Balance 270 660 Weight 63.049 kg Intake: IV 1000 Sodium Chloride 0.9% 1,000 ml @ 1000 100 mls/hr IV .Q10H JULIA Rx#: [id number] Oral 720 360 Output: Void Amount 450 700 Other: Meal Dinner Percent of Meal Consumed 100% Feeding Ability Independent Urine Appearance Clear Clear Urine Color Pale Bright Yellow Urine Odor Normal Stool Size Small Small Stool Color Brown Brown Yellow Yellow Stool Consistency Soft Soft Loose Formed Loose # Voids 1 1 # Bowel Movements 1 1 Exam: General: Alert, Awake, No acute Distress Eyes/N/T: EOMI, Head/Neck: neck supple, CV: RRR, No murmurs, Pulm: Clear b/l, no wheezing/rhonchi/rales Abd: soft, nontender, +BS x4 Ext: no clubbing/cyanosis/edema Neuro: Alert, RUE weakness, face appears symmetrical this time, slurred speech mildly better skin: warm/dry Medical - PN: Obj Da - Labs CBC & Chem 7: 08/24/19 07:06 08/25/19 04:20 Labs: Abnormal Lab Results 08/25/19 08/24/19 08/24/19 04:20 07:30 07:06 RDW Carbon Dioxide POC BUN BUN 26 H Glucose 140 H POC Glucose Triglycerides 184 H 164 H Cholesterol 213 H LDL Cholesterol, Calc 119 H Non-HDL Cholesterol 151 H Urine Glucose (UA) >=500 A Ur Leukocyte Esterase 25 A 08/24/19 08/24/19 07:06 07:06 RDW 15.3 H Carbon Dioxide 21 L POC BUN 27 H BUN 26 H Glucose 132 H POC Glucose 131 H Triglycerides Cholesterol LDL Cholesterol, Calc Non-HDL Cholesterol Urine Glucose (UA) Ur Leukocyte Esterase Meds: Medications Acetaminophen (Tylenol) 650 mg PO Q6HP PRN PRN Reason: PAIN/FEVER > 101 Last Admin: 08/25/19 03:50 Dose: 650 mg Documented by: Albuterol/Ipratropium (Duoneb) 3 ml NEB Q4HP PRN PRN Reason: Shortness Of Breath Aspirin (Aspirin) 81 mg PO DAILY [facility] Atorvastatin Calcium (Lipitor) 80 mg PO HS [facility] Last Admin: 08/24/19 20:48 Dose: 80 mg Documented by: Clopidogrel Bisulfate (Plavix) 75 mg PO DAILY [facility] Last Admin: 08/24/19 13:38 Dose: 75 mg Documented by: Dextrose (Dextrose 50%) 0 ml IV UD PRN PRN Reason: Hypoglycemia Diagnostic Test (Pha) (Accu-Chek) 1 each FS ACHS [facility] Last Admin: 08/24/19 20:43 Dose: 1 each Documented by: Docusate Sodium (Colace) 100 mg PO BID [facility] Last Admin: 08/24/19 20:48 Dose: 100 mg Documented by: Enoxaparin Sodium (Lovenox) 40 mg SQ DAILY [facility] Last Admin: 08/24/19 13:37 Dose: 40 mg Documented by: Glucose (Insta-Glucose) 15 gm PO PRN PRN PRN Reason: Hypoglycemia Potassium Chloride 40 meq/ (Dextrose) 520 mls @ 130 mls/hr IV UD PRN PRN Reason: Potassium < 3 Magnesium Sulfate (Magnesium Sulfate) 2 gm in 50 mls @ 50 mls/hr IV UD PRN PRN Reason: Magnesium </= 1.6 Insulin Human Lispro (Humalog) 0 unit SQ ACHS [facility]; Protocol Last Admin: 08/24/19 20:44 Dose: Not Given Documented by: Labetalol HCl (Trandate) 0 mg IV Q3HP PRN PRN Reason: Hypertension Lactobacillus Rhamnosus (Culturelle) 1 cap PO DAILY [facility] Lactulose (Cephulac) 20 gm PO DAILYP PRN PRN Reason: Constipation Ondansetron HCl (Zofran) 4 mg IV Q4HP PRN PRN Reason: Nausea And Vomiting Canagliflozin [ (Invokana] 100 Mg Tab) 1 dose PO DAILY [facility] N 1 dose PO DAILY [facility] Polyethylene Glycol (Miralax) 17 gm PO DAILYP PRN PRN Reason: Constipation Potassium Chloride (Kdur) 40 meq PO UD PRN PRN Reason: Potssium is 3-3.5 Potassium Chloride (Kdur) 40 meq PO UD PRN PRN Reason: Potassium < 3 Ropinirole HCl (Requip) 2 mg PO DAILY [facility] Senna (Senokot) 2 tab PO DAILYP PRN PRN Reason: Constipation Sodium Chloride (Saline Flush) 10 ml IV Q8 [facility] Last Admin: 08/25/19 05:14 Dose: Not Given Documented by: Medical - PN: A/P - Time Spent With Patient Total time spent is greater than 50% in coordination of care (as documented) at patient's floor/unit and/or counseling patient: - Narrative A/P Narrative: A: *Left-side lacunar infarct w/RUE weakness and slurred speech: -ABCD=7 -Case discussed with stroke neurologist @[place] as well as Dr. Johnson. Recommendations for dual antiplatelet therapy -MRI Brain showing left mick to medulla *Volume depletion: improved *DM w/neuropathy: *HTN/HLD: *RLS: * P: -IVF's finish -DAPT/Statin -echo pending -restart ARB in AM at likely lower dose, hold HCTZ and will not continue as she was recently here for hyponatremia and dehydration -cont DM meds and SSI -ST -pt/ot -CM for placement needs -ppx: lovenox DNR Medical - PN: Qual - Stroke Symptom Onset Unknown: Yes - VTE Deep Vein Thrombosis/Pulmonary Embolism Present on Admission: No
[2019-08-25] MEDS: INSULIN LISPRO 1 UNIT/0.01 ML UNIT SQ SCH ×4 (08:16→21:10)
[2019-08-25] MEDS ORDERED: rOPINIRole 1 MG TABLET PO SCH (09:00)
[2019-08-25] MEDS ORDERED: LACTOBACILLUS 1 CAPSULE PO SCH (09:00)
[2019-08-25] MEDS ORDERED: N PO SCH (09:00)
[2019-08-25] MEDS ORDERED: ASPIRIN 81 MG TAB.CHEW PO SCH (09:00)
--- NOTE | 2019-08-25 09:41 | Magnetic Resonance Report ---
CLINICAL INFORMATION: Right-sided weakness for 5 days TECHNIQUE: Limited MRI scan of the brain. Sagittal T1 weighted images. Axial T2 and diffusion-weighted images COMPARISON: Previous CT scan dated 08/24/2019. 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 FINDINGS: There is restricted diffusion in the left side of the mick extending to the lateral superior medulla. This is midline and to the left of midline. There is associated mild T2 signal abnormality. Appearance is consistent with acute but not hyperacute infarction. No hemorrhagic abnormality identified on CT scan. Basilar artery is normal on previous CTA. No stenosis or dissection. Basilar artery is tortuous. Acute infarction is in pontine cost manager territory. There is severe and extensive white matter abnormality with increased signal intensity in the subcortical and periventricular white matter. This is consistent with small vessel ischemic change in this 84-year-old patient. No intra-axial mass or well-defined focal abnormality. No localized mass effect. No midline shift. There is age-appropriate cerebral edema. No acute hydrocephalus. Normal flow-void demonstrated within vessels at the base of the brain. CTA performed on 08/24/2019 is negative. Basilar artery is negative on prior examination except for basilar artery tortuosity. There is no evidence for stenosis or dissection. Incidental note is made of a 2.1 cm high right frontal meningioma. No significant vasogenic edema or mass effect. IMPRESSION: 1. Acute infarction in the left side of the mick with restricted diffusion at the midline and left of midline. Extends to the superior medulla 2. Sense of white matter abnormality consistent with small vessel ischemic change 3. Incidental high right frontal meningioma Interpreted and Authenticated by: Eladio Scherer 08/25/19
[2019-08-25] MEDS: CLOPIDOGREL 75 MG TABLET PO SCH (09:52)
[2019-08-25] MEDS: ENOXAPARIN 40 MG/0.4 ML SYRINGE SQ SCH (09:52)
[2019-08-25] MEDS: DOCUSATE SODIUM 100 MG CAPSULE PO SCH ×2 (09:53→21:10)
[2019-08-25] MEDS ORDERED: IPRATROPIUM/ALBUTEROL 3 ML AMPUL.NEB NEB PRN (10:25)
[2019-08-25] MEDS ORDERED: DEXTROSE 50% 50 ML VIAL IV PRN (10:25)
[2019-08-25] MEDS ORDERED: MAGNESIUM SULFATE 2 GM/50 ML BAG IV PRN (10:25)
[2019-08-25] MEDS ORDERED: POTASSIUM CHLORIDE 20 MEQ TABLET PO PRN ×2 (10:25)
[2019-08-25] MEDS ORDERED: DEXTROSE 31 GM ORAL.SUSP PO PRN (10:25)
[2019-08-25] MEDS ORDERED: POTASSIUM CHLORIDE 40 MEQ in DEXTROSE 5% IN WATER 500 ML IV PRN (10:25)
[2019-08-25] MEDS ORDERED: LACTULOSE 20 GM/30 ML ORAL.SOL PO PRN (10:25)
[2019-08-25] MEDS ORDERED: SENNOSIDES 1 TABLET PO PRN (10:25)
[2019-08-25] MEDS ORDERED: LABETALOL 5 MG/ML ML IV PRN (10:25)
[2019-08-25] MEDS ORDERED: POLYETHYLENE GLYCOL 3350 17 GM PACKET PO PRN (10:25)
[2019-08-25] MEDS ORDERED: ONDANSETRON 4 MG/2 ML VIAL IV PRN (10:25)
--- NOTE | 2019-08-25 19:50 | Discharge Summary ---
Medical - DS: Prov Patient information: Note initiated : 08/25/19 at 7:47 pm Service Date, if different from initiated Date: [] Patient: Mahogany Quintero 84 y/o F admitted on 08/24/19 for suspects cva 5 days. Chief Complaint: [] Date of admission: 08/24/19 12:32 Discharge date: 08/26/19 Primary care physician: Chelsea Wagner Consults: 08/25/19 09:06 Consult to Physician [CONS] Routine Comment: Consulting Provider: Sai Dugan Reason For Exam: Physician to Consult Medical - DS: Meds - Discharge Medications Prescriptions: Losartan [Cozaar] 50 mg PO DAILY #30 tab Atorvastatin [Lipitor] 40 mg PO HS #30 tab Clopidogrel Bisulfate [Plavix] 75 mg PO DAILY #30 tab Active and Home Medications: Home Medications Aspirin [Lee Chewable Aspirin] 81 mg PO DAILY 08/21/16 [History Confirmed 08/24/19 Last Taken Unknown] Ascorbic Acid [Vitamin C] 500 mg PO DAILY 08/20/19 [History Confirmed 08/24/19 Last Taken Unknown] Benzonatate [Tessalon] 100 mg PO DAILY PRN 08/20/19 [History Confirmed 08/24/19 Last Taken Unknown] Canagliflozin [Invokana] 100 mg PO DAILY 08/20/19 [History Confirmed 08/24/19 Last Taken Unknown] Cholecalciferol (Vitamin D3) [Vitamin D3] 25 gm MC DAILY 08/20/19 [History Confirmed 08/24/19 Last Taken Unknown] Cyanocobalamin/Folic Acid [Vitamin J69-Glusv Acid Tablet] 1,000 tab PO DAILY 08/20/19 [History Confirmed 08/24/19 Last Taken Unknown] Garlic [Garlic Oil] 2,000 tab PO DAILY 08/20/19 [History Confirmed 08/24/19 Last Taken Unknown] Vidhi Root 550 mg PO BID 08/20/19 [History Confirmed 08/24/19 Last Taken Unknown] Gluc Pierre/Chondro Pierre A/Vit C/Mn [Glucosamine 1,500 Complex Cp] 1 tab PO DAILY 08/20/19 [History Confirmed 08/24/19 Last Taken Unknown] L.acidoph,Paracasei, B.lactis [Probiotic] 1 tab PO DAILY 08/20/19 [History Confirmed 08/24/19 Last Taken Unknown] Linagliptin [Tradjenta] 1 tab PO DAILY 08/20/19 [History Confirmed 08/24/19 Last Taken Unknown] Multivit-Minerals/Folic Acid [One Daily Womens 50 Plus Tab] 1 tab PO DAILY 08/20/19 [History Confirmed 08/24/19 Last Taken Unknown] [place]-3S/Dha/Epa/Fish Oil [Fish Oil 1,200 mg Softgel] 1 tab PO DAILY 08/20/19 [History Confirmed 08/24/19 Last Taken Unknown] Pioglitazone HCl 30 mg PO DAILY 08/20/19 [History Confirmed 08/24/19 Last Taken Unknown] Psyllium Husk [Daily Fiber] 2 tab PO DAILY 08/20/19 [History Confirmed 08/24/19 Last Taken Unknown] Ubidecarenone [Co Q-10] 200 mg PO DAILY 08/20/19 [History Confirmed 08/24/19 Last Taken Unknown] rOPINIRole HCL [Ropinirole HCl] 2 mg PO DAILY 08/20/19 [History Confirmed 08/24/19 Last Taken Unknown] Hydrochlorothiazide [Oretic] 25 mg PO DAILY 08/24/19 [History Confirmed 08/24/19 Last Taken Unknown] Losartan Potassium 100 mg PO DAILY 08/24/19 [History Confirmed 08/24/19 Last Taken Unknown] Home Medications Aspirin [Lee Chewable Aspirin] 81 mg PO DAILY 08/21/16 [History Confirmed 08/24/19 Last Taken Unknown] Ascorbic Acid [Vitamin C] 500 mg PO DAILY 08/20/19 [History Confirmed 08/24/19 Last Taken Unknown] Benzonatate [Tessalon] 100 mg PO DAILY PRN 08/20/19 [History Confirmed 08/24/19 Last Taken Unknown] Canagliflozin [Invokana] 100 mg PO DAILY 08/20/19 [History Confirmed 08/24/19 Last Taken Unknown] Cholecalciferol (Vitamin D3) [Vitamin D3] 25 gm MC DAILY 08/20/19 [History Confirmed 08/24/19 Last Taken Unknown] Cyanocobalamin/Folic Acid [Vitamin E50-Xpyuh Acid Tablet] 1,000 tab PO DAILY 08/20/19 [History Confirmed 08/24/19 Last Taken Unknown] Garlic [Garlic Oil] 2,000 tab PO DAILY 08/20/19 [History Confirmed 08/24/19 Last Taken Unknown] Vidhi Root 550 mg PO BID 08/20/19 [History Confirmed 08/24/19 Last Taken Unknown] Gluc Pierre/Chondro Pierre A/Vit C/Mn [Glucosamine 1,500 Complex Cp] 1 tab PO DAILY 08/20/19 [History Confirmed 08/24/19 Last Taken Unknown] L.acidoph,Paracasei, B.lactis [Probiotic] 1 tab PO DAILY 08/20/19 [History Confirmed 08/24/19 Last Taken Unknown] Linagliptin [Tradjenta] 1 tab PO DAILY 08/20/19 [History Confirmed 08/24/19 Last Taken Unknown] Multivit-Minerals/Folic Acid [One Daily Womens 50 Plus Tab] 1 tab PO DAILY 08/20/19 [History Confirmed 08/24/19 Last Taken Unknown] Pioglitazone HCl 30 mg PO DAILY 08/20/19 [History Confirmed 08/24/19 Last Taken Unknown] Psyllium Husk [Daily Fiber] 2 tab PO DAILY 08/20/19 [History Confirmed 08/24/19 Last Taken Unknown] Ubidecarenone [Co Q-10] 200 mg PO DAILY 08/20/19 [History Confirmed 08/24/19 Last Taken Unknown] rOPINIRole HCL [Ropinirole HCl] 2 mg PO DAILY 08/20/19 [History Confirmed 08/24/19 Last Taken Unknown] Atorvastatin [Lipitor] 40 mg PO HS #30 tab 08/25/19 [Rx Last Taken Unknown] Clopidogrel Bisulfate [Plavix] 75 mg PO DAILY #30 tab 08/25/19 [Rx Last Taken Unknown] Losartan [Cozaar] 50 mg PO DAILY #30 tab 08/25/19 [Rx Last Taken Unknown] Medical - DS: Hosp Hospital Course: Ms. Quintero is a 84 year old F Since the ED with severe right arm weakness and slurring speech. She is accompanied by her daughters. They reported. She had some right facial drooping as well initially. Has generalized weakness admits to feeling her right leg to be a little bit weaker than left but much better than her right arm. She was seen a few days ago for generalized weakness was found to be dehydrated and hyponatremic. At that time she did not have any focal deficits is more generalized weakness. Over the last couple days she developed right arm weakness and some slurring in the mornings. This morning her right arm weakness so severe she was unable to get herself up off the bed. She does take a baby aspirin every day. Case is discussed with stroke neurologist at [place] to see patients on a candidate for TPA given the unknown timeframe and sounds to be at least couple days. CT of the head and neck showed no carotid artery stenosis but showed intracranial genetic lesions. Case was discussed with Dr. Johnson who recommended dual antiplatelet therapy and patient not candidate for any intervention at this time. Statin started. She denies any acute vision change changes. Has numbness tingling. 08/25 Poor sleep. it appears speech is better today. Family reports waxes and wanes, worse late in the night or early in the morning. No overnight events or new complaints. MRI showing lacunar infarct on left. Right arm still weak. 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 Occasional headache. 08/26 No overnight events. No new complaints. Echo no reported thrombus or significant abnormalities. stable for d/c. 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 hypertension - Time Spent with Patient Total time spent providing and/or coordinating discharge services: Greater than 30 minutes Medical - DS: Exam - Constitutional Vitals: Vital Signs Temp Pulse Resp BP Pulse Ox 08/25/19 18:01 125/51 08/25/19 17:52 144/99 08/25/19 16:15 133/56 08/25/19 16:14 98.8 F 18 133/56 93 08/25/19 13:01 60 114/52 93 08/25/19 12:01 97.7 F 65 16 113/51 92 08/25/19 11:35 63 119/57 92 08/25/19 10:01 69 139/73 99 08/25/19 09:48 68 121/56 97 08/25/19 08:01 132/66 08/25/19 07:01 63 135/54 97 08/25/19 06:56 68 130/61 100 08/25/19 05:01 56 L 134/58 96 08/25/19 04:12 70 113/85 99 08/25/19 03:52 98.3 F 08/25/19 03:01 78 143/73 95 08/25/19 02:04 73 138/68 100 08/25/19 01:01 69 109/86 97 08/24/19 23:43 73 129/64 100 08/24/19 23:42 97.3 F 75 129/64 98 08/24/19 23:01 71 133/60 96 08/24/19 22:05 97.5 F 76 111/67 96 08/24/19 22:02 71 111/67 94 08/24/19 22:01 74 82/70 96 08/24/19 21:01 79 131/64 97 08/24/19 20:38 99.8 F H 72 132/52 98 08/24/19 20:01 81 132/52 97 Intake and Output 08/25/19 08/25/19 08/25/19 05:59 13:59 21:59 Intake Total 1360 530 840 Output Total 700 100 Balance 660 530 740 Intake: IV 1000 50 Sodium Chloride 0.9% 1,000 ml @ 1000 100 mls/hr IV .Q10H PENDING SALE TO [facility] Rx#: [id number] Oral 360 480 840 Output: Void Amount 700 100 Other: Meal Breakfast Lunch Percent of Meal Consumed 100% 100% Feeding Ability Independent Independent Urine Appearance Clear Clear Urine Color Bright Yellow Pale Urine Odor Normal Normal Stool Size Small Small Smear Stool Color Brown Brown Brown Yellow Stool Consistency Soft Soft Soft Formed Loose Loose # Voids 1 1 # Bowel Movements 1 1 1 Weight 63.049 kg Patient Weight 08/26/19 05:59 Weight 63.049 kg Medical - DS: Data Labs on day of discharge: Labs from last 24 hours 08/25/19 04:20 Sodium 142 Potassium 4.1 Chloride 107 Carbon Dioxide 22 Anion Gap 13.0 BUN 26 H Creatinine 1.0 GFR Calculation 51 Glucose 140 H Uric Acid 5.3 Calcium 9.1 Phosphorus 3.4 Magnesium 1.6 Total Bilirubin 0.2 Direct Bilirubin < 0.2 GGT 14 AST 13 ALT 9 Alkaline Phosphatase 56 Lactate Dehydrogenase 176 Total Protein 6.4 Albumin 3.5 Globulin 2.9 Albumin/Globulin Ratio 1.2 Triglycerides 184 H Medical - DS: A/P - Patient/Caregiver Discharge Instructions Activity: as per physical therapy Diet: Dysphagia Level 7 Easy to Chew Foods (consistent carb / cardiac) Additional Instructions: Referral to see neurologist in 5 to 10 days. Monitor blood pressure daily, keep a log and bring to primary care provider. If systolic blood pressure consistently greater than 140, then call your primary care provider. You may need to increase your losartan which was decreased in the hospital from 100mg to 50 mg daily. Prescriptions: Losartan [Cozaar] 50 mg PO DAILY #30 tab Atorvastatin [Lipitor] 40 mg PO HS #30 tab Clopidogrel Bisulfate [Plavix] 75 mg PO DAILY #30 tab Other Amb Orders: OT Discharge Order Location: None Selected Physical Therapy at Discharge - General Location: None Selected ST Discharge Order Location: None Selected - Follow up Plan Follow up with: Chelsea Wagner ARNP [Primary Care Provider] - 08/29/19 10:00 am (Please arrive 15 minutes early) Aaron Martines MD [Physician] - (Your hospital information has been faxed to Dr. Martines's office they will contact you to schedule an appointment.) Disposition: Home Health Service Care Plan Goals: This discharge packet is provided to you to help keep you informed about your care. We want to ensure you get everything you need when you go home. You will also be receiving a call from us in a few days to follow up with you and see how you are doing since your discharge. This gives us a chance to listen to any concerns you maybe experiencing since you were discharged or any additional needs you may have, as well as providing us feedback on your care experience. We strive to always provide excellent care and thank you for your feedback and for choosing [facility]. Prognosis: Undetermined Rehab Potential: Fair I certify that the patient requires SNF services: Yes Overall status at discharge: patient is not back to baseline Medical - DS: Qual - VTE Deep Vein Thrombosis/Pulmonary Embolism Present on Admission: No
[2019-08-25] MEDS ORDERED: ATORVASTATIN 40 MG TABLET PO SCH (21:00)
[2019-08-26] MEDS: 0.9 % SODIUM CHLORIDE 10 ML SYRINGE IV SCH (05:30)
[2019-08-26] MEDS: INSULIN LISPRO 1 UNIT/0.01 ML UNIT SQ SCH (08:00)
--- NOTE | 2019-08-26 08:00 | Internal Med Progress Note ---
Medical - PN: Subj Patient information: Note initiated : 08/26/19 at 7:58 am Service Date, if different from initiated Date: [] Patient: Mahogany Quintero 84 y/o F admitted on 08/24/19 for suspects cva 5 days. Chief Complaint: [] Interval history: Ms. Quintero is a 84 year old F Since the ED with severe right arm weakness and slurring speech. She is accompanied by her daughters. They reported. She had some right facial drooping as well initially. Has generalized weakness admits to feeling her right leg to be a little bit weaker than left but much better than her right arm. She was seen a few days ago for generalized weakness was found to be dehydrated and hyponatremic. At that time she did not have any focal deficits is more generalized weakness. Over the last couple days she developed right arm weakne ss and some slurring in the mornings. This morning her right arm weakness so severe she was unable to get herself up off the bed. She does take a baby aspirin every day. Case is discussed with stroke neurologist at [place] to see patients on a candidate for TPA given the unknown timeframe and sounds to be at least couple days. CT of the head and neck showed no carotid artery stenosis but showed intracranial genetic lesions. Case was discussed with Dr. Johnson who recommended dual antiplatelet therapy and patient not candidate for any intervention at this time. Statin started. She denies any acute vision change changes. Has numbness tingling. 08/25 Poor sleep. it appears speech is better today. Family reports waxes and wanes, worse late in the night or early in the morning. No overnight events or new complaints. MRI showing lacunar infarct on left. Right arm still weak. 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 Occasional headache. Review of Systems: denies fever/chills/nausea/vomiting/chest or abdominal pain/cough/dyspnea/diarrhea. Otherwise see above. - Constitutional Vitals: Vital Signs Temp Pulse Resp BP Pulse Ox 98 F 78 18 154/67 97 08/26/19 07:57 08/26/19 07:44 08/26/19 07:44 08/26/19 07:44 08/26/19 07:44 Period Temp Pulse Resp BP Sys/Osman Pulse Ox Last 24 Hr 97.4 F-98.8 F 60-78 16-20 113-154/51-99 92-100 Intake and Output 08/25/19 08/26/19 08/26/19 21:59 05:59 13:59 Intake Total 840 300 360 Output Total 400 750 276 Balance 440 -450 84 Weight 61.915 kg Intake & Output: Intake & Output 08/25/19 08/26/19 08/26/19 21:59 05:59 13:59 Intake Total 840 300 360 Output Total 400 750 276 Balance 440 -450 84 Weight 61.915 kg Intake: Oral 840 300 360 Output: Void Amount 400 750 276 Other: Meal Lunch Percent of Meal Consumed 100% Feeding Ability Independent Urine Appearance Clear Clear Clear Urine Color Pale Pale Dark Yellow Urine Odor Normal Normal Normal Stool Size Smear Small Smear Stool Color Brown Brown Brown Stool Consistency Soft Soft Soft # Voids 1 # Bowel Movements 1 Exam: General: Alert, Awake, No acute Distress Eyes/N/T: EOMI, Head/Neck: neck supple, CV: RRR, No murmurs, Pulm: Clear b/l, no wheezing/rhonchi/rales Abd: soft, nontender, +BS x4 Ext: no clubbing/cyanosis/edema Neuro: Alert, RUE weakness, face appears symmetrical this time, slurred speech mildly better skin: warm/dry Medical - PN: Obj Da - Labs CBC & Chem 7: 08/24/19 07:06 08/25/19 04:20 Labs: Abnormal Lab Results 08/25/19 08/24/19 08/24/19 04:20 07:30 07:06 RDW Carbon Dioxide POC BUN BUN 26 H Glucose 140 H POC Glucose Triglycerides 184 H 164 H Cholesterol 213 H LDL Cholesterol, Calc 119 H Non-HDL Cholesterol 151 H Urine Glucose (UA) >=500 A Ur Leukocyte Esterase 25 A 08/24/19 08/24/19 07:06 07:06 RDW 15.3 H Carbon Dioxide 21 L POC BUN 27 H BUN 26 H Glucose 132 H POC Glucose 131 H Triglycerides Cholesterol LDL Cholesterol, Calc Non-HDL Cholesterol Urine Glucose (UA) Ur Leukocyte Esterase Meds: Medications Acetaminophen (Tylenol) 650 mg PO Q6HP PRN PRN Reason: PAIN/FEVER > 101 Last Admin: 08/25/19 21:13 Dose: 650 mg Documented by: Albuterol/Ipratropium (Duoneb) 3 ml NEB Q4HP PRN PRN Reason: Shortness Of Breath Aspirin (Aspirin) 81 mg PO DAILY [facility] Atorvastatin Calcium (Lipitor) 80 mg PO HS [facility] Last Admin: 08/25/19 21:10 Dose: 80 mg Documented by: Clopidogrel Bisulfate (Plavix) 75 mg PO DAILY [facility] Dextrose (Dextrose 50%) 0 ml IV UD PRN PRN Reason: Hypoglycemia Diagnostic Test (Pha) (Accu-Chek) 1 each FS ACHS [facility] Last Admin: 08/25/19 21:08 Dose: 1 each Documented by: Docusate Sodium (Colace) 100 mg PO BID [facility] Last Admin: 08/25/19 21:10 Dose: Not Given Documented by: Enoxaparin Sodium (Lovenox) 40 mg SQ DAILY [facility] Glucose (Insta-Glucose) 15 gm PO PRN PRN PRN Reason: Hypoglycemia Potassium Chloride 40 meq/ (Dextrose) 520 mls @ 130 mls/hr IV UD PRN PRN Reason: Potassium < 3 Magnesium Sulfate (Magnesium Sulfate) 2 gm in 50 mls @ 50 mls/hr IV UD PRN PRN Reason: Magnesium </= 1.6 Last Infusion: 08/25/19 12:08 Dose: Infused Documented by: Insulin Human Lispro (Humalog) 0 unit SQ ACHS [facility]; Protocol Last Admin: 08/25/19 21:10 Dose: Not Given Documented by: Labetalol HCl (Trandate) 0 mg IV Q3HP PRN PRN Reason: Hypertension Lactobacillus Rhamnosus (Culturelle) 1 cap PO DAILY [facility] Lactulose (Cephulac) 20 gm PO DAILYP PRN PRN Reason: Constipation Losartan Potassium (Cozaar) 50 mg PO DAILY [facility] Ondansetron HCl (Zofran) 4 mg IV Q4HP PRN PRN Reason: Nausea And Vomiting Canagliflozin [ (Invokana] 100 Mg Tab) 1 dose PO DAILY [facility] Linagliptin [ (Tradjenta] 5 Mg Tab) 1 dose PO DAILY [facility] Polyethylene Glycol (Miralax) 17 gm PO DAILYP PRN PRN Reason: Constipation Potassium Chloride (Kdur) 40 meq PO UD PRN PRN Reason: Potssium is 3-3.5 Potassium Chloride (Kdur) 40 meq PO UD PRN PRN Reason: Potassium < 3 Ropinirole HCl (Requip) 2 mg PO DAILY [facility] Senna (Senokot) 2 tab PO DAILYP PRN PRN Reason: Constipation Sodium Chloride (Saline Flush) 10 ml IV Q8 [facility]UL[facility] Last Admin: 08/26/19 05:30 Dose: 10 ml Documented by: Medical - PN: A/P - Time Spent With Patient Total time spent is greater than 50% in coordination of care (as documented) at patient's floor/unit and/or counseling patient: - Narrative A/P Narrative: A: *Left-side lacunar infarct w/RUE weakness and slurred speech: -Case discussed with stroke neurologist @[facility] [place] as well as Dr. Johnson. Recommendations for dual antiplatelet therapy -MRI Brain showing left mick to medulla *Volume depletion: improved *DM w/neuropathy: *HTN/HLD: *RLS: *Oropharyngeal Dysphagia, Mild: P: -DAPT/Statin -echo pending -restarted ARB at likely lower dose, hold HCTZ and will not continue as she was recently here for hyponatremia and dehydration -cont DM meds and SSI -ST -pt/ot -CM for placement needs -ppx: lovenox DNR Medical - PN: Qual - Stroke Symptom Onset Unknown: Yes - VTE Deep Vein Thrombosis/Pulmonary Embolism Present on Admission: No
[2019-08-26] MEDS ORDERED: hydrALAZINE 20 MG/ML VIAL IV PRN (08:01)
[2019-08-26] MEDS ORDERED: CLOPIDOGREL 75 MG TABLET PO SCH (09:00)
[2019-08-26] MEDS ORDERED: ENOXAPARIN 40 MG/0.4 ML SYRINGE SQ SCH (09:00)
[2019-08-26] MEDS ORDERED: ASPIRIN 81 MG TAB.CHEW PO SCH (09:00)
[2019-08-26] MEDS ORDERED: LOSARTAN 50 MG TABLET PO SCH (09:00)
[2019-08-26] MEDS ORDERED: LACTOBACILLUS 1 CAPSULE PO SCH (09:00)
[2019-08-26] MEDS ORDERED: rOPINIRole 1 MG TABLET PO SCH (09:00)
[2019-08-26] MEDS: ACETAMINOPHEN 325 MG TABLET PO PRN (09:18)
[2019-08-26] MEDS: DOCUSATE SODIUM 100 MG CAPSULE PO SCH (09:19)
== END 2019-08-26 10:45 | disposition home health service (06) | DRG 66 ==
LOC: ED 06:46 → ICU 12:30
PROVIDERS: ADMIT Internal Medicine; ATTEND Internal Medicine